=== PATIENT | male | born 1970 | race Hispanic/Latino ===

== ENCOUNTER 2019-05-19 16:25 | Emergency (ER) | payer OTHER, SELFPAY ==
[2019-05-19] MEDS ORDERED: Lidocaine 1% w/Epinephrine 1:100K 20 ML VIAL ONE (16:33)
== END 2019-05-19 16:58 | disposition home or self-care (01) ==
LOC: ERS 16:25
DX: S61.012A Laceration without foreign body of left thumb without damage to nail, initial encounter (principal); W26.0XXA Contact with knife, initial encounter
CPT/HCPCS: 99282; J2001

== ENCOUNTER 2022-10-29 09:05 | Emergency (ER) | payer OTHER, SELFPAY ==
[2022-10-29] MEDS ORDERED: Boostrix 0.5 ML (Tdap) VIAL (>/=7 yrs of age) ONE (11:08)
[2022-10-29] MEDS ORDERED: Acetaminophen 500 MG TAB ONE (11:08)
== END 2022-10-29 11:56 | disposition home or self-care (01) ==
LOC: ERS 09:05
DX: S01.81XA Laceration without foreign body of other part of head, initial encounter (principal); I10 Essential (primary) hypertension; V49.3XXA Car occupant (driver) (passenger) injured in unspecified nontraffic accident, initial encounter; Z79.899 Other long term (current) drug therapy
CPT/HCPCS: 70450; 70486; 71045; 72125; 90471; 90715